=== PATIENT | female | born 1930 | race Caucasian/White ===

== ENCOUNTER 2016-11-25 19:46 | Emergency (ER) | payer OTHER ==
[~2016-11-25] VITALS: Ht 162.6 cm; Wt 68.0 kg
[2016-11-25 19:46] VITALS: BP 179/87; PULSE 101; RESP 14; TEMP 97.4; O2SAT 95
[~2016-11-25 19:46] MED LIST: AMLO5TAB92 PO; ATEN100T PO; GLIP10TA11 PO; HYDR-1189 PO; HYDR25TA4 PO; LOSA100T15 PO; OMEP20CA4 PO; POTA20PA PO; SERT25TA77 PO; SIMV20TA6 PO; [UNRECOGNIZED DRUG - CODE] PO
--- NOTE | 2016-11-25 19:46 | NUR ---
Placed in room 3 . Placed on ophthalmic technician apprentice, blood pressure machine and pulse oximeter. To gown for exam. Side rails up. Report given to Frantz EUCEDA.
--- NOTE | 2016-11-25 19:48 | NUR ---
Pt BIB ambulance with c/o SOB x1 hour, diminished bilateral bases on auscultation. Pt stated that she has not feel well in the past few days. Given zofran during en-route, nausea relieved. A&Ox4, pt c/o discomfort 3/10 at the chest, no vomitting noted. Skin intact, warm, will continue to monitor
--- NOTE | 2016-11-25 19:50 | NUR ---
at bedside examining pt
[2016-11-25] MEDS ORDERED: NITROGLYCERIN 0.4 MG TAB.SUBL SL ONE (20:00)
[2016-11-25] MEDS ORDERED: ASPIRIN 325 MG TABLET PO ONE (20:00)
[2016-11-25 20:25] LABS: BASOPHILS # (AUTO) 0.4 K/uL (0.0-0.2); EOSINOPHILS # (AUTO) 0.4 K/uL (0.0-0.4); LYMPHOCYTES # (AUTO) 1.8 K/uL (1.0-5.5); MEAN CORPUSCULAR HEMOGLOBIN 28 pg (27-31); NEUTROPHILS % (AUTO) 74.5 % (40.0-70.0)
[2016-11-25 20:28] LABS: BASOPHILS % (AUTO) 2.6 % (0.0-2.0); EOSINOPHILS % (AUTO) 3.1 % (0.0-4.0); HEMATOCRIT 33.5 % (36-48); HEMOGLOBIN 11.2 g/dL (12.0-16.0); LYMPHOCYTES % (AUTO) 12.9 % (20.5-51.5); MEAN CORPUSCULAR HGB CONC 33 % (32-36); MEAN CORPUSCULAR VOLUME 83 fL (79.0-98.0); MONOCYTES % (AUTO) 6.9 % (1.7-9.3); NEUTROPHILS # (AUTO) 10.4 K/uL (1.8-7.7); PLATELET COUNT (AUTO) 193 K/uL (130-430); RED BLOOD CELL COUNT(AUTO) 4.06 MIL/uL (4.2-6.2); RED CELL DISTRIBUTION WIDTH 13.7 % (9.0-15.0)
--- NOTE | 2016-11-25 20:30 | NUR ---
Pt in bed, pt acknowledged that she will be transfered to [facility] for higher level of care. Daughter at bedside, pt A&Ox4, VSS
[2016-11-25 20:35] LABS: ANION GAP 7 (5-15); CALCIUM 8.9 mg/dL (8.4-11.0); CHLORIDE 104 mmol/L (98-107); CREATININE 0.96 mg/dL (0.55-1.30); GLUCOSE 199 mg/dL (70-99); POTASSIUM 3.9 mmol/L (3.5-5.1); SODIUM SERUM 138 mmol/L (136-145); UREA NITROGEN, BLOOD 20 mg/dL (8-21)
[2016-11-25 20:42] LABS: ALANINE AMINOTRANSFERASE 16 U/L (12-78); ALBUMIN 3.3 g/dL (3.4-4.8); ASPARTATE AMINOTRANSFERASE 19 U/L (10-37); TOTAL BILIRUBIN 0.4 mg/dL (0.0-1.0); TOTAL PROTEIN, SERUM 6.7 g/dL (6.4-8.3)
[2016-11-25] MEDS ORDERED: FUROSEMIDE 20 MG/2 ML VIAL IVP ONE (21:00)
[2016-11-25] MEDS ORDERED: IPRATROPIUM/ALBUTEROL SULFATE 3 ML AMPUL.NEB INH ONE (21:00)
[2016-11-25] MEDS ORDERED: methylPREDNISolone SOD SUCC/PF 62.5 MG/ML VIAL IVP ONE (21:00)
--- NOTE | 2016-11-25 21:05 | NUR ---
Pt medicated per MD order, no sign of distress noted
--- NOTE | 2016-11-25 22:05 | NUR ---
Pt in bed, denies chestpain, 98% on 2L NC, denies distress
[2016-11-25] MEDS ORDERED: NITROGLYCERIN 1 INCH (GM) OINT. TD ONE (22:45)
--- NOTE | 2016-11-25 23:00 | NUR ---
lactic acid 0.9, blood cult x2, levaquin administered. T 98.3 , VSS
--- NOTE | 2016-11-25 23:30 | NUR ---
Pt in bed, alert and oritened, asked about the time [facility] will transport her. Care attended and needs assessed. No distress noted
--- NOTE | 2016-11-26 00:15 | NUR ---
Pt was notified that [facility] transport team will arrive and transfer pt to [facility]. Pt appeared calm, oriented, stated she's tired because of waiting
--- NOTE | 2016-11-26 00:30 | NUR ---
[facility] transport team arrived at ED
--- NOTE | 2016-11-26 00:35 | NUR ---
Patient to be transferred to [facility]. Is being transferred due to higher level of care. Receiving facility has accepting physician and available space. ER physician has signed transfer form. Patient or responsible green party has agreed to transfer and signed form. Patient belongings inventoried and will be sent with patient. Copy of nursing notes, lab reports, EKG, Physicians Orders and X-rays to be sent with patient. Report called to [facility] ER at receiving facility. Receiving physician is Dr.J Sahni. [facility] ambulance service has been called for transfer. Report given to uma
[2016-11-26 00:40] VITALS: BP 166/85; PULSE 97; RESP 18; TEMP 98.3; O2SAT 97
--- NOTE | 2016-11-26 00:40 | NUR ---
Pt noted with mild change in mental status, appeared tired and stated " I don't remember why I'm here", " It's october or november, i don't remember". notified, and at bedside evaluating pt. Repeat EKG performed, blood sugar 211, BP166/85, T98.3, 97% on RA, RR 18. [facility] team made aware of change in status. acknowledged that pt will be transfered to [facility] in a timely manner for further evaluation
--- NOTE | 2016-11-26 01:20 | NUR ---
[facility] transport team left ED
== END 2016-11-26 01:20 | disposition short-term general hospital (02) ==
LOC: SED 19:46
DX: I11.0 Hypertensive heart disease with heart failure (principal); I50.9 Heart failure, unspecified; J18.9 Pneumonia, unspecified organism; E11.9 Type 2 diabetes mellitus without complications; Z88.0 Allergy status to penicillin; Z79.899 Other long term (current) drug therapy
CPT/HCPCS: 36415; 71010; 80053; 83605; 83880; 84484; 85025; 87040; 93005 ×2; 94640; 96365; 96375; 99285; J1940; J1956; J2930

== ENCOUNTER 2017-09-15 13:32 | Emergency (ER) | payer MEDICARE, OTHER ==
[~2017-09-15] VITALS: Ht 162.6 cm; Wt 58.1 kg
[2017-09-15 13:32] VITALS: BP_SYST 126
[2017-09-15] MEDS ORDERED: AMIO200T39 PO (14:07)
[2017-09-15] MEDS ORDERED: LOSA25TA3 PO (14:07)
[2017-09-15] MEDS ORDERED: LIP20 PO (14:07)
[2017-09-15] MEDS ORDERED: ALBMDI INH (14:07)
[2017-09-15] MEDS ORDERED: METO25TA6 PO (14:07)
[2017-09-15] MEDS ORDERED: GALA8TAB3 PO (14:07)
[2017-09-15] MEDS ORDERED: POTA-118 PO (14:07)
[2017-09-15] MEDS ORDERED: ASPI-1063 PO (14:07)
[2017-09-15] MEDS ORDERED: ONDA4TAB22 PO (14:07)
[2017-09-15] MEDS: NS 500 ML IV ONE (14:26)
[2017-09-15 14:34] LABS: ANION GAP 6 (5-15); CHLORIDE 101 mmol/L (98-107); CREATININE 1.11 mg/dL (0.55-1.30); GLUCOSE 205 mg/dL (70-99); POTASSIUM 4.1 mmol/L (3.5-5.1); SODIUM SERUM 134 mmol/L (136-145); UREA NITROGEN, BLOOD 29 mg/dL (8-21)
[2017-09-15 14:39] LABS: ALANINE AMINOTRANSFERASE 9 U/L (12-78); ALBUMIN 2.2 g/dL (3.4-4.8); ASPARTATE AMINOTRANSFERASE 14 U/L (10-37); TOTAL BILIRUBIN 0.4 mg/dL (0.0-1.0)
[2017-09-15 14:40] LABS: BASOPHILS # (AUTO) 0.3 K/uL (0.0-0.2); BASOPHILS % (AUTO) 1.8 % (0.0-2.0); EOSINOPHILS # (AUTO) 0.1 K/uL (0.0-0.4); EOSINOPHILS % (AUTO) 0.5 % (0.0-4.0); HEMATOCRIT 28.4 % (36-48); HEMOGLOBIN 9.6 g/dL (12.0-16.0); LYMPHOCYTES # (AUTO) 0.8 K/uL (1.0-5.5); LYMPHOCYTES % (AUTO) 5.5 % (20.5-51.5); MEAN CORPUSCULAR HEMOGLOBIN 27 pg (27-31); MEAN CORPUSCULAR HGB CONC 34 % (32-36); MEAN CORPUSCULAR VOLUME 81 fL (79.0-98.0); MONOCYTES # (AUTO) 1.2 K/uL (0.0-1.0); NEUTROPHILS # (AUTO) 12.6 K/uL (1.8-7.7); NEUTROPHILS % (AUTO) 84.2 % (40.0-70.0); PLATELET COUNT (AUTO) 226 K/uL (130-430); RED BLOOD CELL COUNT(AUTO) 3.52 MIL/uL (4.2-6.2); RED CELL DISTRIBUTION WIDTH 14.9 % (9.0-15.0)
[2017-09-15 14:56] LABS: INR 1.3 (0.8-1.2); PROTHROMBIN TIME 12.9 SECS (9.5-12.5)
[2017-09-15] MEDS: ASPIRIN 81 MG TAB.CHEW PO ONE (15:32)
[2017-09-15 15:42] LABS: BILIRUBIN,URINE NEGATIVE (NEGATIVE); BLOOD, URINE NEGATIVE (NEGATIVE); CLARITY/URINE SL HAZY (CLEAR); COLOR,URINE YELLOW (YELLOW); GLUCOSE,URINE NEGATIVE (NEGATIVE); KETONES,URINE TRACE (NEGATIVE); LEUKOCYTE ESTERASE ,URINE TRACE (NEGATIVE); NITRITE, URINE NEGATIVE (NEGATIVE); PH,URINE 5.5 (5.0-8.0); PROTEIN URINE NEGATIVE (NEGATIVE); UROBILINOGEN,URINE 0.2 (0.2-1.0)
[2017-09-15 16:06] LABS: BACTERIA,URINE FEW /HPF (None Seen); MUCUS,URINE None Seen /LPF (None Seen); RBC,URINE NONE SEEN /HPF (0-3); YEAST,URINE Moderate /HPF (None Seen)
[2017-09-15 18:00] VITALS: BP_SYST 116
== END 2017-09-15 18:00 | disposition home or self-care (01) ==
LOC: SED 13:32
DX: R53.1 Weakness (principal); R79.89 Other specified abnormal findings of blood chemistry; E11.9 Type 2 diabetes mellitus without complications; I10 Essential (primary) hypertension; R51 Headache; Z86.79 Personal history of other diseases of the circulatory system; Z88.0 Allergy status to penicillin; Z88.6 Allergy status to analgesic agent; Z90.49 Acquired absence of other specified parts of digestive tract; Z98.890 Other specified postprocedural states
CPT/HCPCS: 36415; 70450; 71010; 74176; 80053; 81000; 83605; 84484; 85025; 85610; 85730; 87040; 87086; 93005; 96360; 99285; J7040